=== PATIENT | female | born 1965 | race Caucasian/White ===

== ENCOUNTER 2022-10-21 11:04 | Outpatient (REF) | payer MEDICARE, MEDICAID, SELFPAY ==
[2022-10-27 00:53] LABS: JCV Antibody POSITIVE; JCV Index Value 1.91
== END 2022-10-21 11:05 | disposition home or self-care (01) ==
LOC: HO.LAB 11:04
PROVIDERS: PCP Family Medicine; Visit Provider Psychiatry & Neurology Neurology
DX: G35 Multiple sclerosis (principal)
CPT/HCPCS: 36415; 86711

== ENCOUNTER 2023-09-25 07:06 | Inpatient (IN) | payer MEDICARE, MEDICAID, SELFPAY ==
[2023-09-25 07:17] VITALS: BP 104/55; PULSE 85; RESP 18; TEMP 36.9; O2SAT 98; BMI 18.7
--- NOTE | 2023-09-25 07:22 | ED.WEAKNESS ---
HPI - Weakness General Chief complaint: Weakness Stated complaint: COLD/FLU SX,WEAK,UNABLE TO GET UP,HX MS PER EMS Time Seen by Provider: 09/25/23 07:08 Source: patient and EMS Mode of arrival: EMS Limitations: no limitations History of Present Illness HPI Narrative: 58 yo female with PMH of relapsin and remitting MS on Tysabri she follows with Dr. Parkinson. Her son came home last Monday with sore throat fevers and not feeling well had neative COVID test at that time. Patient is not vaccinated against flu or COVID. Yesterday she started with fevers 99 - 102 dry mouth and sore throat. Now she is very weak and feels she cannot walk. Her test at home was also negative. She could not get to the bedside commode and urinated on herself. MD Complaint: generalized weakness Onset (ago): day(s) (1) Duration: constant Location: generalized Migration: none Severity: moderate Quality: aching Relieving factors: rest Exacerbating factors: movement and exertion Context: recent illness and other (sick contacts) Associated symptoms: fever/chills and other (sore throat, dry mouth) Related Data Allergies Allergy/AdvReac Type Severity Reaction Status Date / Time No Known Allergies Allergy Unverified 04/09/20 16:25 [No Known Allergies*] Review of Systems Review of Systems: Constitutional : pos Fever, pos Chills, pos Fatigue ENT/Mouth : pos sore throat, No Rhinorrhea Eyes: No Eye Pain, No Swelling, No Redness Cardiovascular : No Chest Pain, No SOB, No Dyspnea on Exertion Respiratory : No Cough, No Sputum Gastrointestinal : No Nausea, No Vomiting, No Diarrhea, No abdominal Pain Genitourinary : No Dysuria, No Urinary Frequency, No Hematuria, Musculoskeletal : No joint pain, pos Myalgias, No Joint Swelling Skin : No Skin Lesions, No rash Neuro : pos Weakness, No Numbness, No Dizziness, positive Headache Psych : No Anxiety/Panic, No Depression Heme/Lymph: No Bruising, No Bleeding,No Lymphadenopathy Endocrine : No Polyuria, No Polydipsia All other systems reviewed and are negative [facility] [place] [place] Past Medical History Attestation statement: The following information was validated with the patient. Source: old records reviewed Medical History (Updated 09/25/23 @ 09:45 by Skylar Garcia DO) Multiple sclerosis Social History Social History (Updated 09/25/23 @ 07:44 by Skylar Garcia DO) Patient Tobacco Use Status: Never used Tobacco Smoked in Last 30 Days: No Use of substances other than those prescribed or required for medical reasons: Yes Substance Use Type: Marijuana Advance Directives: No Advance Directives Information Provided: No Physical Exam Vital Signs: Vital Signs: Last Vital Signs Temp 98.4 F 09/25/23 07:17 Pulse 85 09/25/23 07:17 Resp 18 09/25/23 07:17 BP 104/55 L 09/25/23 07:17 Pulse Ox 98 09/25/23 07:17 O2 Del Method Room Air 09/25/23 07:17 BMI result Body Mass Index 18.7 Appearance: Alert. Oriented X3. No acute distress. Eyes: Pupils equal, round and reactive to light. ENT: Pharynx normal. mildly dry MM Neck: Normal inspection. Neck supple. CVS: Normal heart rate and rhythm. Pulses normal. Respiratory: No respiratory distress. Breath sounds normal. Abdomen: Soft and nontender. Skin: Skin warm and dry. Normal skin color. Normal skin turgor. Extremities: No lower extremity edema. No calf ttp Neuro: Oriented X 3. No sensory deficit. both legs are weak she has limited strength and mobility at this time - symmetric Medications Administered Discontinued Medications Generic Name Dose Route Start Last Admin Trade Name Freq PRN Reason Stop Dose Admin Sodium Chloride 1,000 mls @ 999 mls/hr 09/25/23 07:30 09/25/23 09:06 Ns IV 09/25/23 08:30 Infused .Q1H1M REHANA Infusion Medical Decision Making Medical Decision Making MDM Narrative: 58 yo female with PMH of MS on infusions at this time here with fevers, sore throat after exposure to same illness as her son she is now having leg weakness and decreased ability to get around at this time labs, IVF, viral panel, strep throat and will discuss with her neurologist about possible IV steroid bolus given exacerbation though she is reporting fevers still. Will discuss with neurologist Differential Diagnosis Differential Diagnoses: The differential diagnosis associated with the presentation includes viral syndrome, MS exacerbation Admission/Observation Consideration of admission/observation: Escalation of care including admission/observation considered patient cannot ambulate has exacerbation of her MS, incontinent of urine as she cannot make to the toilet acutely + COVID no hypoxia will admit for IV steroid infusions Consult Healthcare Provider Management of the patient was discussed with: Hospitalist (will admit) and Rn Embedded (Dr. Parkinson start with IV solumedrol 500mg IV admit treat covid will follow) Lab Data [facility] Lab Attestation statement: I reviewed the patient's lab results. 09/25/23 07:32 09/25/23 07:32 Labs: Lab Results 09/25/23 09/25/23 Range/Units 07:32 09:29 WBC 4.4 L (4.8-10.8) X10*3/uL RBC 4.30 (4.20-5.50) X10*6/uL Hgb 12.0 (12.0-16.0) g/dl Hct 37.0 (37.0-47.0) % MCV 86.0 (80.0-98.0) fL MCH 27.9 (27.0-33.0) pg MCHC 32.4 (31.0-35.0) g/dl RDW 13.6 (11.0-16.0) % Plt Count 140 L (160-400) X10*3/uL MPV 10.3 (9.4-12.3) fL Immature Gran % (Auto) 0.5 H (0.0-0.4) % Neut % (Auto) 67.2 (45-73) % Lymph % (Auto) 14.1 L (20-40) % [place] % (Auto) 16.4 H (2-11) % Eos % (Auto) 1.1 (0-4) % Baso % (Auto) 0.7 (0-2) % Lymph # (Auto) 0.6 L (1.2-4.9) X10*3/uL [place] # (Auto) 0.7 (0.1-1.2) X10*3/uL Eos # (Auto) 0.1 (0.0-0.4) X10*3/uL Baso # (Auto) 0.0 (0.0-0.2) X10*3/uL Abs Immat Gran (auto) 0.02 (0.00-0.03) X10*3/uL Absolute Neuts (auto) 3.0 (2.0-8.3) x10*3/uL Absolute Nucleated RBC 0.020 H (0.0-0.012) X10*3/uL Nucleated RBC % (auto) 0.5 H (0.0-0.2) /100WBC Sodium 139 (135-145) mmol/L Potassium 4.0 (3.3-5.1) mmol/L Chloride 105 (96-108) mmol/L Carbon Dioxide 29 (22-29) mmol/L Anion Gap 9 L (12-20) BUN 10 (9-16) mg/dL Creatinine 0.82 (0.5-1.4) mg/dL Estim Creat Clear Calc 67.6 Estimated GFR > 60 Random Glucose 113 (60-115) mg/dL Calcium 8.9 (8.4-10.2) mg/dL Magnesium 1.9 (1.6-2.6) mg/dL Total Bilirubin 0.5 (0.0-1.0) mg/dL Direct Bilirubin 0.2 (0.0-0.5) mg/dL AST 13 (5-31) U/L ALT 8 (0-31) U/L Alkaline Phosphatase 76 (39-117) U/L Total Protein 6.2 L (6.5-8.0) g/dL Albumin 4.1 (3.5-5.0) g/dL Lipase 36 (8-78) U/L Urine Color Yellow Urine Appearance Clear Urine pH 6.0 (5.0-9.0) Ur Specific [place] 1.010 (1.005-1.025) Urine Protein Negative (Neg-Trace) mg/dL Urine Glucose (UA) Negative (Negative) mg/dL Urine Ketones Trace (Negative) mg/dL Urine Blood Negative (Negative) Urine Nitrite Negative (Negative) Ur Leukocyte Esterase Negative (Negative) Influenza Type A (PCR) NEGATIVE (Negative) Influenza Type B (PCR) NEGATIVE (Negative) RSV RNA Qual (PCR) NEGATIVE (Negative) SARS-CoV-2 RNA (RT-PCR) POSITIVE A (Negative) S. pyogenes GrpA CLYDE Negative (Negative) Independent Historian Clinical information obtained from an independent historian. History obtained from or confirmed by: EMS Discharge Plan Discharge Clinical Impression: COVID-19, Exacerbation of multiple sclerosis, Weakness Patient Disposition: Admitted As Inpatient
[2023-09-25] MEDS: 0.9 % Sodium Chloride 1,000 ML 999 ML IV (07:34)
[2023-09-25 07:39] LABS: MANUAL DIFF FLAG NO
[2023-09-25 07:40] LABS: Basophils Percent Auto 0.7 % (0-2); Eosinophils Absolute Auto 0.1 X10*3/uL (0.0-0.4); Eosinophils Percent Auto 1.1 % (0-4); Imm Gran Abs Auto 0.02 X10*3/uL (0.00-0.03); Imm Gran Pct Auto 0.5 % (0.0-0.4); Lymphocytes Absolute Auto 0.6 X10*3/uL (1.2-4.9); Lymphocytes Percent Auto 14.1 % (20-40); Mean Corpuscular HGB Conc 32.4 g/dl (31.0-35.0); Mean Corpuscular Hemoglobin 27.9 pg (27.0-33.0); Mean Platelet Volume 10.3 fL (9.4-12.3); Monocytes Absolute Auto 0.7 X10*3/uL (0.1-1.2); Monocytes Percent Auto 16.4 % (2-11); NRBC Pct Auto 0.5 /100WBC (0.0-0.2); Neutrophils Percent Auto 67.2 % (45-73); Platelet Count 140 X10*3/uL (160-400); Red Cell Distribution Width 13.6 % (11.0-16.0); White Blood Count 4.4 X10*3/uL (4.8-10.8)
[2023-09-25 07:53] LABS: Alanine Aminotransferase 8 U/L (0-31); Albumin Level 4.1 g/dL (3.5-5.0); Alkaline Phosphatase 76 U/L (39-117); Anion Gap 9 (12-20); Aspartate Amino Transferase 13 U/L (5-31); Bilirubin Direct 0.2 mg/dL (0.0-0.5); Bilirubin Total 0.5 mg/dL (0.0-1.0); Blood Urea Nitrogen 10 mg/dL (9-16); Calcium 8.9 mg/dL (8.4-10.2); Carbon Dioxide 29 mmol/L (22-29); Chloride 105 mmol/L (96-108); Creatinine Clr Calc Pharmacy 67.6; Estimated Glomerular Filt Rate > 60; Glucose Random 113 mg/dL (60-115); Lipase 36 U/L (8-78); Magnesium 1.9 mg/dL (1.6-2.6); Sodium 139 mmol/L (135-145); Total Protein 6.2 g/dL (6.5-8.0)
[2023-09-25 08:12] LABS: IDNOW Serial# 08D9AD1C; Strep A Nucleic Acid Negative (Negative)
--- NOTE | 2023-09-25 09:06 | PC.NURSE ---
Per provider patient okay to take home medication 0.5mg of ativan and home dose ampyra
[2023-09-25 09:13] LABS: Influenza A PCR NEGATIVE (Negative); Influenza B PCR NEGATIVE (Negative); Resp Syncy Virus RNA Qual PCR NEGATIVE (Negative); SARS COV2 PCR INHOUSE POSITIVE (Negative)
[2023-09-25 09:35] LABS: Appearance Urine Clear; Color Urine Yellow; Glucose Urine UA Negative (Negative); Leukocyte Esterase Urine Negative (Negative); Nitrite Urine Negative (Negative); Urine Blood Negative (Negative); Urine Ketones Trace mg/dL (Negative); Urine Protein Negative (Neg-Trace)
[2023-09-25 10:08] VITALS: BP 108/54; PULSE 89; RESP 12; O2SAT 96
--- NOTE | 2023-09-25 10:13 | PM.IMHP ---
History of Present Illness Date of Service: 09/25/23 Chief Complaint: weakness 58F PMH relapsing remitting MS, presented with diffuse weakness. patient reports exposure to son with viral illness about 1 week ptp. now presentiing with 1 day of headache and diffuse weakness, inability to ambulate. no fever, sob. in ED covid positive. Review of Systems Review of Systems: Yes all other systems are reviewed and are negative [facility] Medical History Multiple sclerosis Social History Patient Tobacco Use Status: Never used Tobacco Smoked in Last 30 Days: No Use of substances other than those prescribed or required for medical reasons: Yes Substance Use Type: Marijuana Advance Directives: No Advance Directives Information Provided: No Meds Allergies Allergy/AdvReac Type Severity Reaction Status Date / Time No Known Allergies Allergy Unverified 04/09/20 16:25 [No Known Allergies*] Active Medications: Current Medications Methylprednisolone Sodium Succinate 500 mg/ Sodium Chloride 50 mls @ 50 mls/hr IV ONCE ONE Stop: 09/25/23 10:36 Physical Exam Vital Signs and Narrative: Vital Signs: Last Vital Signs Temp 98.4 F 09/25/23 07:17 Pulse 89 09/25/23 10:08 Resp 12 09/25/23 10:08 BP 108/54 L 09/25/23 10:08 Pulse Ox 96 09/25/23 10:08 O2 Del Method Room Air 09/25/23 10:08 BMI result Body Mass Index 18.7 General: AO X 3, fatigued Resp: CTA bilateral, no accessory muscles used CVS: S1,S2,RRR GI: soft, non tender, non distended Neuro: motor grossly intact, alert Psych: appropriate affect, appropriate insight Results Labs 09/25/23 07:32 09/25/23 07:32 Labs: Laboratory Results - last 24 hr 09/25/23 09/25/23 07:32 09:29 MCV 86.0 MCH 27.9 MCHC 32.4 RDW 13.6 Plt Count 140 L MPV 10.3 Immature Gran % (Auto) 0.5 H Neut % (Auto) 67.2 Lymph % (Auto) 14.1 L [place] % (Auto) 16.4 H Eos % (Auto) 1.1 Baso % (Auto) 0.7 Lymph # (Auto) 0.6 L [place] # (Auto) 0.7 Eos # (Auto) 0.1 Baso # (Auto) 0.0 Abs Immat Gran (auto) 0.02 Absolute Neuts (auto) 3.0 Absolute Nucleated RBC 0.020 H Nucleated RBC % (auto) 0.5 H Anion Gap 9 L Estim Creat Clear Calc 67.6 Estimated GFR > 60 Random Glucose 113 Calcium 8.9 Magnesium 1.9 Total Bilirubin 0.5 Direct Bilirubin 0.2 AST 13 ALT 8 Alkaline Phosphatase 76 Total Protein 6.2 L Albumin 4.1 Lipase 36 Urine Color Yellow Urine Appearance Clear Urine pH 6.0 Ur Specific [place] 1.010 Urine Protein Negative Urine Glucose (UA) Negative Urine Ketones Trace Urine Blood Negative Urine Nitrite Negative Ur Leukocyte Esterase Negative Influenza Type A (PCR) NEGATIVE Influenza Type B (PCR) NEGATIVE RSV RNA Qual (PCR) NEGATIVE SARS-CoV-2 RNA (RT-PCR) POSITIVE A S. pyogenes GrpA CLYDE Negative Assessment and Plan (1) Weakness: Status: Acute Plan 58F PMH MS presented with weakness, covid + MS with acute flare due to COVID Solu-Medrol 500 mg IV daily Neurology eval Symptomatic treatment for COVID DVT prophylaxis with Lovenox Full Code Patient with MS flare will likely require at least 3 days of high-dose IV Solu-Medrol inpatient. Quality Stroke Does the patient have a stroke diagnosis?: No VTE Prior VTE?: No VTE Risk Level:: Medical - moderate - high VTE Device Contraindication: Treatment Not Indicated VTE Drug Contraindication: N/A - Med Ordered
[2023-09-25] MEDS: methylPREDNISolone Sod Succ 500 MG in 0.9 % Sodium Chloride 50 ML 50 MG IV (10:57)
[2023-09-25] MEDS: Enoxaparin Sodium 40 MG/0.4 ML SYRINGE SUBCUT (10:57)
--- NOTE | 2023-09-25 11:14 | PHA.MEDREC ---
Pharmacy Consult ? Medication Reconciliation Pharmacy has completed the medication reconciliation. Spoke to patient and confirmed medication list.
[2023-09-25 11:29] VITALS: BP 101/48; PULSE 73; RESP 20; TEMP 37.1; O2SAT 100
--- NOTE | 2023-09-25 14:26 | PM.NEUROCN ---
History of Present Illness Data of Consult Service Date: 09/25/23 Primary Care Provider: Unknown Physician HPI Reason for consult: COVID, ?MS exacerbation This is a 58 yr old woman with stable relapsing remitting MS on Tysabri for many years, presented with diffuse weakness aftertesting positive for COVID contracted from her son who was sick in the last week. She was fine 8 hrs ago, an dnow has fever, headache and diffuse weakness, inability to ambulate. Review of Systems Review of Systems: Constitutional : pos Fever, pos Chills, pos Fatigue ENT/Mouth : pos sore throat, No Rhinorrhea Eyes: No Eye Pain, No Swelling, No Redness Cardiovascular : No Chest Pain, No SOB, No Dyspnea on Exertion Respiratory : No Cough, No Sputum Gastrointestinal : No Nausea, No Vomiting, No Diarrhea, No abdominal Pain Genitourinary : No Dysuria, No Urinary Frequency, No Hematuria, Musculoskeletal : No joint pain, pos Myalgias, No Joint Swelling Skin : No Skin Lesions, No rash Neuro : pos Weakness, No Numbness, No Dizziness, positive Headache Psych : No Anxiety/Panic, No Depression Heme/Lymph: No Bruising, No Bleeding,No Lymphadenopathy Endocrine : No Polyuria, No Polydipsia All other systems reviewed and are negative Yes all other systems are reviewed and are negative [facility] Past Medical History Medical History Multiple sclerosis Social History Social History Patient Tobacco Use Status: Never used Tobacco Smoked in Last 30 Days: No Use of substances other than those prescribed or required for medical reasons: Yes Substance Use Type: Marijuana Advance Directives: No Advance Directives Information Provided: No Meds Allergies Allergy/AdvReac Type Severity Reaction Status Date / Time No Known Allergies Allergy Unverified 04/09/20 16:25 [No Known Allergies*] Active Medications: Current Medications Acetaminophen (Acetaminophen 325 Mg Tablet) 650 mg PO Q6H PRN PRN Reason: Pain, Mild (Pain Scale 1-3) Enoxaparin Sodium (Enoxaparin Sodium 40 Mg/0.4 Ml Syringe) 40 mg SUBCUT Q24H REHANA Last Admin: 09/25/23 10:57 Dose: 40 mg Methylprednisolone Sodium Succinate 500 mg/ Sodium Chloride 50 mls @ 50 mls/hr IV DAILY REHANA Stop: 09/28/23 09:59 Lorazepam (Lorazepam 0.5 Mg Tablet) 0.5 mg PO DAILY PRN PRN Reason: Anxiety Melatonin (Melatonin 3 Mg Tablet) 6 mg PO BEDTIME PRN PRN Reason: Insomnia Pt Own ( Dalfampridine 10 Mg Tablet Extended Release 12 Hr) 10 mg PO BID [facility] Ondansetron HCl (Ondansetron Hcl 4 Mg/2 Ml Vial) 4 mg IVPUSH Q8H PRN PRN Reason: Nausea and Vomiting Sertraline HCl (Sertraline Hcl 25 Mg Tablet) 75 mg PO DAILY [facility] Sodium Chloride (0.9 % Sodium Chloride Flush 3 Ml Syringe) 3 ml IVFLUSH QSHIFT [facility] Home Medications Medication Instructions Recorded Confirmed Last Taken Type dalfampridine 10 mg 10 mg PO BID 09/25/23 09/25/23 09/25/23 History tablet,extended release,12 hr lorazepam 0.5 mg tablet 0.5 mg PO DAILY PRN Anxiety 09/25/23 09/25/23 Unknown History natalizumab 300 mg/15 mL 300 mg IV Q28D 09/25/23 09/25/23 09/11/23 History intravenous solution (Tysabri) sertraline 50 mg tablet 75 mg PO DAILY 09/25/23 09/25/23 09/24/23 History Physical Exam Vital Signs: Vital Signs: Last Vital Signs Temp 98.7 F 09/25/23 11:29 Pulse 73 09/25/23 11:29 Resp 20 09/25/23 11:29 BP 101/48 L 09/25/23 11:29 Pulse Ox 100 09/25/23 11:29 O2 Del Method Room Air 09/25/23 11:29 BMI result Body Mass Index 18.7 Neuro: Other: She's alert and oriented with normal cognitive functions. Cranial nerves are normal. Nonfocal neurological examination Results Labs 09/25/23 07:32 09/25/23 07:32 Labs: Short CBC 09/25/23 Range/Units 07:32 WBC 4.4 L (4.8-10.8) X10*3/uL Hgb 12.0 (12.0-16.0) g/dl Hct 37.0 (37.0-47.0) % Plt Count 140 L (160-400) X10*3/uL BMP 09/25/23 07:32 Sodium 139 Potassium 4.0 Chloride 105 Carbon Dioxide 29 BUN 10 Creatinine 0.82 Calcium 8.9 Liver Function 09/25/23 Range/Units 07:32 Total Bilirubin 0.5 (0.0-1.0) mg/dL Direct Bilirubin 0.2 (0.0-0.5) mg/dL AST 13 (5-31) U/L ALT 8 (0-31) U/L Alkaline Phosphatase 76 (39-117) U/L Albumin 4.1 (3.5-5.0) g/dL Urine 09/25/23 Range/Units 09:29 Urine Color Yellow Urine Appearance Clear Urine pH 6.0 (5.0-9.0) Ur Specific [place] 1.010 (1.005-1.025) Urine Protein Negative (Neg-Trace) mg/dL Urine Glucose (UA) Negative (Negative) mg/dL Assessment and Plan (1) COVID-19: Status: Acute In view of her underlying neurological disease in severity of symptoms, I would recommend treating her with Paxlovid (2) Exacerbation of multiple sclerosis: Status: Acute She has had very stable MS for several years and therefore I am not certain that this is an MS exacerbation. Her last MRI looked good. I think a generalized weakness is related to the Covid. We will administer one dosse of Solu-Medrol intravenously 500 mg, treat the Covid and see how she does clinically. Plan 58F PMH MS presented with weakness, covid + MS with acute flare due to COVID Solu-Medrol 500 mg IV daily Neurology eval Symptomatic treatment for COVID DVT prophylaxis with Lovenox Full Code Patient with MS flare will likely require at least 3 days of high-dose IV Solu-Medrol inpatient. Procedures Date of Service Date of Service: 09/25/23
[2023-09-25 15:25] VITALS: BP 111/59; PULSE 70; RESP 16; TEMP 36.8; O2SAT 97
--- NOTE | 2023-09-25 15:28 | PC.NURSE ---
assumed care of pt at this time. resting comfortably in stretcher. nad. call leal within reach.
--- NOTE | 2023-09-25 17:25 | MHC.EDTECH ---
Patient inc and patient total bed changed
[2023-09-25] MEDS: 0.9 % Sodium Chloride Flush 3 ML SYRINGE IVFLUSH (19:12)
[2023-09-25 20:04] VITALS: BP 94/62; PULSE 72; RESP 12; O2SAT 99
[2023-09-25 23:45] VITALS: BP 88/48; PULSE 60; RESP 16; O2SAT 98
[2023-09-26 00:55] VITALS: BP 98/51
[2023-09-26] MEDS: 0.9 % Sodium Chloride Flush 3 ML SYRINGE IVFLUSH ×2 (00:55→09:35)
[2023-09-26 00:59] VITALS: BP 98/51
[2023-09-26 01:01] VITALS: BP 98/51; O2SAT 98
[2023-09-26 05:37] VITALS: BP 109/51; PULSE 55; RESP 15; TEMP 36.4; O2SAT 99
[2023-09-26 06:32] LABS: Hematocrit 35.5 % (37.0-47.0); Hemoglobin 11.5 g/dl (12.0-16.0); Mean Corpuscular HGB Conc 32.4 g/dl (31.0-35.0); Mean Corpuscular Hemoglobin 27.8 pg (27.0-33.0); Mean Corpuscular Volume 85.7 fL (80.0-98.0); Mean Platelet Volume 11.2 fL (9.4-12.3); NRBC Pct Auto 0.5 /100WBC (0.0-0.2); Platelet Count 167 X10*3/uL (160-400); Red Blood Count 4.14 X10*6/uL (4.20-5.50); Red Cell Distribution Width 13.5 % (11.0-16.0); White Blood Count 5.7 X10*3/uL (4.8-10.8)
[2023-09-26 06:46] LABS: Anion Gap 9 (12-20); Blood Urea Nitrogen 9 mg/dL (9-16); Calcium 8.9 mg/dL (8.4-10.2); Carbon Dioxide 26 mmol/L (22-29); Chloride 108 mmol/L (96-108); Creatinine Clr Calc Pharmacy 75.9; Estimated Glomerular Filt Rate > 60; Glucose Fasting 98 mg/dL (60-99); Sodium 139 mmol/L (135-145)
[2023-09-26] MEDS: Sertraline HCL 25 MG TABLET 75 MG PO (09:35)
[2023-09-26] MEDS: Enoxaparin Sodium 40 MG/0.4 ML SYRINGE SUBCUT (09:35)
--- NOTE | 2023-09-26 09:44 | MHC.CM.PN ---
Patient is in the ED and Covid (+); CM spoke with Patient on her cell at [phone] and addressed IMM with her (original will be given to Patient and a copy will be placed on the chart). Patient lives with her 2 adult Sons, ages 26 & 28 years of age and because of her MS, she requires a cane and a w/c at times to assist with mobility. At Patient's request a referral has been made to NA; [facility] has initiated and will follow for dc planning. CM was unable to locate a HCP at the PCP's office. PCP is Dr. Fariha Rushing @ [phone].
--- NOTE | 2023-09-26 10:36 | P.DS_ITS ---
DS: Providers Provider Date of Service: 09/26/23 Date of admission: 09/25/23 10:12 Primary care physician: Unknown Physician Consults: 09/25/23 09:44 Consult to Neurology Stat Consulting Provider: [facility] Reason for consultation: MS, weakness, COVID + Has provider been notified: Yes DS: Diagnosis Discharge Diagnosis (1) COVID-19: Status: Acute (2) Exacerbation of multiple sclerosis: Status: Acute DS: Summary Hospital Course Hospital Course: from initial hpi: 58F PMH relapsing remitting MS, presented with diffuse weakness. patient reports exposure to son with viral illness about 1 week ptp. now presentiing with 1 day of headache and diffuse weakness, inability to ambulate. no fever, sob. in ED covid positive. hospital course: Patient was initially admitted for suspected MS acute flare due to COVID and started on high-dose IV Solu-Medrol. She was seen by Neurology who felt this was more likely weakness due to COVID as opposed to true MS flare. Patient reports significant improvement the next day. Will be discharged home. Can continue symptomatic management for COVID. Should follow up with Neurology as outpatient. Time Attestation Discharge Coordination Time: discharge time of ____ minutes Quality: Safe Use of Opioids Does Pt have an Active Cancer Diagnosis on the Problem List?: No Quality: Stroke Does the patient have a stroke diagnosis?: No Physical Exam Vital Signs: Vital Signs: Last Vital Signs Temp 97.6 F 09/26/23 05:37 Pulse 55 09/26/23 05:37 Resp 15 09/26/23 05:37 BP 109/51 L 09/26/23 05:37 Pulse Ox 99 09/26/23 05:37 O2 Del Method Room Air 09/26/23 05:37 BMI result Body Mass Index 18.7 General: AO X 3, no acute distress Resp: CTA bilateral, no accessory muscles used CVS: S1,S2,RRR GI: soft, non tender, non distended Neuro: motor grossly intact, alert Psych: appropriate affect, appropriate insight DS: Data Data Completed and Pending Labs on day of discharge: Laboratory Results - last 24 hr 09/26/23 05:26 WBC 5.7 RBC 4.14 L Hgb 11.5 L Hct 35.5 L MCV 85.7 MCH 27.8 MCHC 32.4 RDW 13.5 Plt Count 167 MPV 11.2 Absolute Nucleated RBC 0.030 H Nucleated RBC % (auto) 0.5 H Sodium 139 Potassium 4.0 Chloride 108 Carbon Dioxide 26 Anion Gap 9 L BUN 9 Creatinine 0.73 Estim Creat Clear Calc 75.9 Estimated GFR > 60 Fasting Glucose 98 Calcium 8.9 Discharge Plan Discharge Anticipated Discharge Date/Time: 09/26/23 10:35 Patient Disposition: Home, Self-Care Discharge Diagnosis: covid Referrals: Physician,Unknown J [Primary Care Provider] - 1 Week Discharge Medications: Continued lorazepam 0.5 mg tablet 0.5 mg PO DAILY PRN (Reason: Anxiety) sertraline 50 mg tablet 75 mg PO DAILY Tysabri 300 mg/15 mL solution 300 mg IV Q28D dalfampridine 10 mg tablet extended release 12 hr 10 mg PO BID Discharge Orders: Discharge Order (Routine); Ordered 09/26/23 Ordered By: Tomas Jimenes Diet: Advance to usual diet Activity on Discharge: As tolerated Stand Alone Forms: Patient Portal Discharge page Care Plan Goals: recovery Health Concerns: covid Plan of Treatment: symptomatic management Assessment: see above
--- NOTE | 2023-09-26 10:38 | MHC.CM.PN ---
Patient has been medically cleared for dc to home today, self care.
--- NOTE | 2023-09-26 11:12 | PC.NURSE ---
assumed care of pt at 1045. pt a&o x4, pleasant, calm, and cooperative. denies pain, only complaint is being tired. pt sts this is her first time with covid and that her son fell ill with it last monday. pt sts she started to feel symptoms 2 days later on monday. pt currently resting quietly on stretcher in no apparent distress. call leal within reach. rr even/unlabored. plan of care ongoing.
[2023-09-26 12:59] VITALS: BP 104/47; PULSE 61; RESP 16; TEMP 37; O2SAT 100
== END 2023-09-26 13:09 | disposition home or self-care (01) | DRG 179 ==
LOC: HO.ED 09:45 → HO.EDOVER 10:15
PROVIDERS: Admitting Provider Internal Medicine; Emergency Provider Emergency Medicine; Visit Provider Internal Medicine
DX: U07.1 COVID-19 (principal); G35 Multiple sclerosis; Z79.620 Long term (current) use of immunosuppressive biologic; Z79.899 Other long term (current) drug therapy
CPT/HCPCS: 0241U; 36415; 80048; 80076; 81003; 83690; 83735; 85025; 85027; 87651; 99285; J1650; J2930

== ENCOUNTER → 2023-09-25 10:12 | Outpatient (BNV) | payer MEDICARE, MEDICAID, SELFPAY | PROVIDERS: Admitting Provider Internal Medicine; Emergency Provider Emergency Medicine; Visit Provider Psychiatry & Neurology Neurology | DX: U07.1 COVID-19 (principal); G35 Multiple sclerosis | CPT/HCPCS: 99222 ==

== ENCOUNTER 2024-01-23 14:08 | Outpatient (REF) | payer MEDICARE, MEDICAID, SELFPAY ==
[2024-01-30 23:13] LABS: JCV Antibody POSITIVE; JCV Index Value 1.46
== END 2024-01-23 14:09 | disposition home or self-care (01) ==
LOC: HO.LAB 14:08
PROVIDERS: Visit Provider Psychiatry & Neurology Neurology
DX: G35 Multiple sclerosis (principal)
CPT/HCPCS: 36415; 86711

== ENCOUNTER 2024-08-15 12:00 | Outpatient (REF) | payer MEDICARE, MEDICAID, SELFPAY ==
--- OUTSIDE RECORDS SUMMARY | 2024-08-15 14:28 | XMS_ITS | Clinical Summary ---
Author Organization [facility] Address [address] [place] [address] Care Team Providers Care Return To Service Inspector Name Role Phone Unavailable Primary Care Provider Unavailabl e Social History Tobacco Use Types Packs/Day Years Used Date Smoking Tobacco: Never Assessed Sex and Gender Information Value Date Recorded Sex Assigned at Not on file Gender Identity Not on file Sexual Orientation Not on file Job Start Date Occupation Industry Not on file Not on file Not on file Plan of Treatment Health Maintenance Due Date Last Done Comments Hepatitis B Vaccines (1 of 3 - 3-dose series) 1965 Hepatitis C Screening 1965 Depression Screening 1977 Preventative Health Evaluation 1983 Cervical Cancer Screening (Pap Smear) 1986 Colon Cancer Screening (Colonoscopy) 2010 Breast Cancer Screening (Mammogram) 2015 Shingrix-Zoster Vaccine (1 o f 2) 2015 DTap / Tdap / Td (2 - Td or Tdap) 10/23/2021 10/24/2011, 05/31/1993 COVID-19 Vaccine (3 - 2023-2 5 season) 2024 11/29/2020, 11/08/2020 Influenza Vaccine (#1) 2024 Pneumococcal Vaccine Aged Out No long er eligible based on patient's age to complete this topic RSV Ped < 20 months Aged Out No longe r eligible based on patient's age to complete this topic Marguerite Hu Personal/Family Self 1965 [address] [place] [id number]
--- OUTSIDE RECORDS SUMMARY | 2024-08-15 14:28 | XMS_ITS | Clinical Summary ---
Author Organization [facility] Address [address] [place] [address] Care Team Providers Care Automated Manufacturing Instructor Name Role Phone Farhia Hyatt MD Primary Care Provider + [phone] Allergies No known active allergies Medications Medication Sig Dispensed Refills Start Date End Date Status LORazepam (ATIVAN) 0.5 mg tablet Take 1 Tablet by mouth TAKE 1 TABLET BY MOUTH TWICE DAILY NEEDED Active cholecalciferol (VITAMIN D-3) 25 mcg (1,000 unit) tablet Take 2,000 Units by mouth Active dalfampridine 10 mg tablet extended release 12 hr Take 10 mg by mouth Active natalizumab (TYSABRI) 300 mg/15 mL injection Inject 300 mg into the vein Active sertraline (ZOLOFT) 50 mg tablet TAKE 1 AND 1/2 TABLETS(75 MG) BY MOUTH DAILY Active MAGNESIUM CITRATE ORAL Take by mouth Active B complex tablet Take by mouth Activ e Active Problems Problem Noted Date Diagnosed Date Anxiety 07/03/2024 Depression 07/03/2024 Endometrial cancer 07/03/2024 Multiple sclerosis, relapsing-remitting 07/03/20 24 Immunizations Name Administration Dates Next Due Vivo SARS-CoV-2 COVID-19, mRNA, LNP-S, preservative free 11/29/2020,11/08/2020 Surgical History Surgery Date Site/Laterality Comments TONSILLECTOMY 1971 PROCEDURE: HISTORICAL TONSILLECTOMY OTHER SURGICAL HISTORY 12/06/2021 PROCEDURE: MI LAPS TOTAL HYSTERECT 250 GM/< W/RMVL TUBE/OVARY; COMMENT: Robotic-assisted total laparoscopic hysterectomy with bilateral salpingo-oophorectomy and bilateral sentinel lymph node biopsy with Firefly Medical History Medical History Date Comments Multiple sclerosis (CMS/HCC) 11/23/2021 DX: Multiple sclerosis (HCC) Anxiety 11/23/2021 DX:Anxiety Depression 11/23/2021 DX:Depression Social History Tobacco Use Types Packs/Day Years Used Date Smoking Tobacco: Former Smokeless Tobacco: Never Alcohol Use Standard Drinks/Week Comments Never 0 (1 standard drink = 0.6 oz pur e alcohol) Sex and Gender Information Value Date Recorded Sex Assigned at Female 01/06/2022 3:31 PM EDT Gender Identity Female 01/06/2022 3:31 PM EDT Sexual Orientation Straight 01/06/2022 3: 31 PM EDT Obstetrics History Last Filed Vital Signs Vital Sign Reading Time Taken Comments Blood Pressure 124/70 10/19/2023 12:54 PM EDT Pulse 76 10/19/2023 12:54 PM EDT Temperature - - Respiratory Rate - - Oxygen Saturation - - Inhaled Oxygen Concentration - - Weight 57.6 kg (127 lb) 10/18/2022 1:45 PM EDT Height - - Body Mass Index - - Plan of Treatment Upcoming Encounters Date Type Department Care Team (Late st Contact Info) Description 10/24/2024 1:20 PM EDT Office Visit [facility] [address] [place] [address] Idania Edmond MD [address] [place] [address] Health Maintenance Due Date Last Done Comments Breast Cancer Screening 1965 Pneumococcal Vaccine: Pediatrics (0 to 5 Years) and At-Risk Patients (6 to 64 Years) (1 of 2 - PCV) 1971 DTaP,Tdap,and Td Vaccines (1 - Tdap) 1984 Hepatitis B Vaccines (1 of 3 - 19+ 3-dose series) 1984 Zoster Vaccines (1 of 2) 1984 Cervical Cancer Screening: P ap Smear 1986 COVID-19 Vaccine (3 - Pfizer risk series) 12/27/2020 11/29/2020, 11/08/2020 Colorectal Cancer Screening: Colonoscopy 01/06/2022 Depression Screening 01/06/2022 HIV Screening 01/06/2022 Hepatitis C Screening 01/06/2022 Social Influencers of Health Screening 01/06/2022 Influenza Vaccine (#1) 2024 RSV Immunization Patients 60 + Years Old (1 - 1-dose 75+ series) 2040 HIB Vaccines Aged Out No longer eligi ble based on patient's age to complete this topic HPV Vaccines Aged Out No longer eligi ble based on patient's age to complete this topic Hepatitis A Vaccines Aged Out No long er eligible based on patient's age to complete this topic IPV Vaccines Aged Out No longer eligi ble based on patient's age to complete this topic MMR Vaccines Aged Out No longer eligi ble based on patient's age to complete this topic Meningococcal ACWY Vaccine Aged Out N o longer eligible based on patient's age to complete this topic RSV Immunization Patients Under 20 months Aged Out No longer eligible b ased on patient's age to complete this topic Varicella Vaccines Aged Out No longer eligible based on patient's age to complete this topic Advance Directives Documents on File Type Date Recorded 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
--- OUTSIDE RECORDS SUMMARY | 2024-08-15 14:28 | XMS_ITS ---
Author Organization Chaz Miguel III, MD Address [address] [place] [address] Care Team Providers Care Clinical Care Manager Name Role Phone DILEEP Rushing Primary Care Provider Unavailab Chaz Britton Unavailable [phone] Tesha AWAN, [facility] Unavailable Unavailabl e Allergies Allergen (clinical drug ingredient) Drug/Non Drug Allergy documented on EMR Reaction Allergy Type Onset Date Status No Known Drug Allergy Unknown Drug Allergy Active REASON FOR VISIT Tysabri Infusion Medications Medication SIG (Take, Route, Fr equency, Duration) Notes Start Date End Date Status Zoloft 50 MG 1 tablet Orally Once a day Active Tysabri 300 MG/15ML Intravenous Active LORazepam 0.5 MG (Schedule IV Drug) T CANDICE 1 TABLET BY MOUTH TWICE DAILY IF NEEDED Oral Active Ampyra 10 MG 1 tablet Orally Twice a day 7 Active Social History Tobacco Use: Social History Observation Description Date Details (start date - stop date) Former Smoker NA - NA Sex Assigned At : Social History Observation Description Sex Assigned At Female Tobacco Use/Smoking Question Answer Notes Patient is a former smoker How long has it been since you last smoked? 5-10 years Additional Findings: Tobacco Non-User Ex-cigaret te smoker Vital Signs Blood pressure systolic 124 mm Hg 05/22/20 24 Blood pressure diastolic 72 mm Hg 024 Heart Rate 89 /min 05/22/2024 Height 69 in in 05/22/2024 Weight 121 lbs 05/22/2024 BMI 17.87 kg/m2 05/22/2024 Encounters Encounter Location Date Provider Diagnosis Chaz Miguel III, MD [address] [place] [address] [place] [address] 05/22/2024 Chaz Lamont MS (multiple sclerosis) G35 ; Positive PPD R76.11 ; Former smoker Z87.891 ; Underweight R63.6 and Endometrial cancer C54.1 Assessments Encounter Date Diagnosis (ICD Code) Assessment Notes Treatment Notes Treatment Clinical Notes 05/22/2024 MS (multiple sclerosis) (ICD-10 - G35) She received the Tysabri infusion today without difficulty and tolerated it well. 05/22/2024 Positive PPD (ICD-10 - R76.11) There is no sign of active tuberculosis this time. She has been treated with 12 months of isoniazid and should be free of disease. 05/22/2024 Former smoker (ICD-10 - Z87.891) She is highly motivated not to smoke and has a plan to prevent relapse in times of illness and distress. 05/22/2024 Underweight (ICD-10 - R63.6) Her weight has been stable. Her body mass index is 17.8. I encouraged her to increase her caloric intake. 05/22/2024 Endometrial cancer (ICD-10 - C54.1) She has completed her radiation. She has no pain at this point, but feels tired. She is cancer free at this time. Plan Of Treatment Medication Medication Name Sig Start Date Stop Date Notes Zoloft 50 MG 1 tablet Orally Once a day Tysabri 300 MG/15ML Intravenous LORazepam 0.5 MG (Schedule IV Drug) T CANDICE 1 TABLET BY MOUTH TWICE DAILY IF NEEDED Oral Ampyra 10 MG 1 tablet Orally Twice a day 04/24/2017 Next Appt Details Follow Up: 4 Weeks, Reason: Tysabri infusion Provider Name:Chaz Miguel, 08/21/2024 01:00:00 PM, [address] [place] [address] [place], [address], Provider Name:Chaz Miguel, 09/18/2024 01:00:00 PM, [address] [place] [address] [place], [address], Provider Name:Chaz Miguel, 10/16/2024 01:00:00 PM, [address] [place] [address] [address] [place], [place], [address], Procedure Notes * Category Sub-Category Detail Notes Chemotherapy Start and End Time: start, 1:00 pm, end, 2:00 pm Site: left hand Consent: verbal consent was o btained prior to procedure Medications given: Tysabri 300 mg Monitored by: Trace Mancilla port flush none route IV Progress Notes * REJI WALLACEOB:1965 (58 yo F)Acc No.[id number]:05/22/2024 Patient:?MADISON AISSATOU Provider:?Chaz Miguel MD :1965???Age:58 Y???Sex:Female D ate:05/22/2024 Address: [facility], [id number] Pcp:DILEEP Rushing Subjective: * Chief Complaints: * ???Tysabri Infusion * HPI: ???COVID-19 Screening:? He returns for another dose of Tysabri monoclonal antibody therapy for chronic relapsing multiple sclerosis.? There was no contraindication to treatment today.? He tolerated the infusion well. ?Questions?Have you experienced fever, chills, cough, sore throat, shortness of breath, difficulty breathing, muscle aches, loss of taste or smell??No ?Have you been exposed to the virus within the last 10 days??No ?Have you travelled internationally in the last 10 days??No ?Have you been exposed to COVID-19 in the past??Yes * ROS:?General/Constitutional:?pain?only normal aches and pains.?Chills?denies.?Fatigue?admits.?Fever?denies.?ENT:?Decreased hearing?denies.?Respiratory:?Cough?denies.?Cardiovascular:?Chest pain with exertion?denies.?Dyspnea on exertion?denies.?Shortness of breath?denies.?Gastrointestinal:?Constipation?occasional.?Decreased appetite?denies.?Diarrhea?denies.?Heartburn?denies.?Nausea?denies.?Rectal bleeding?denies.?Vomiting?denies.?Hematology:?bruising?denies.?petechiae?denies.?Swollen glands?none have been noted.?Genitourinary:?Frequent urination?denies.?Musculoskeletal:?Muscle aches?denies.?Painful joints?denies.?Sciatica?denies.?Weakness?Both lower extremities.?Skin:?Itching?denies.?Rash?denies.?Skin lesion(s)?denies.?Neurologic:?Difficulty speaking?denies.?Dizziness?denies.?Headache?denies.?Low back pain?denies.?Psychiatric:?Depressed mood?denies.? * Medical History:? * Surgical History:?[id number] to nsillectomy age 10 * Hospitalization/Major Diagno stic Procedure:?Denies Past Hospitalization * Family History:?Father: valentine aleman 73 yrs, well.?Mother: alive 72 yrs, overweight.?Son(s): well.?1 brother(s) , 1 sister(s) - healthy. 2 son(s) - healthy. .? Her siblings are alive and well. One of her sons has mild osteogenesis imperfecta. She is not aware of any family history of mental illness or substance use disorder or depression. * Social History:?Tobacco Use:?Tobacco Use/Smoking?Patient is a?former smoker ?How long has it been since you last smoked??5-10 years ?Additional Findings: Tobacco Non-User?Ex-cigarette smoker ???She has Social Security disability. She is no longer employed. She was born in [facility]. 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 She has 2 sons currently 20/2/19 years old. * Medications:?TakingAmpyra 10 MG Tablet Extended Release 12 Hour 1 tablet Orally Twice a day LORazepam 0.5 MG Tablet (Schedule IV Drug) TAKE 1 TABLET BY MOUTH TWICE DAILY IF NEEDED Oral Tysabri 300 MG/15ML Concentrate Intravenous Zoloft 50 MG Tablet 1 tablet Orally Once a day Medication List reviewed and reconciled with the patientTaking Ampyra 10 MG Tablet Extended Release 12 Hour 1 tablet Orally Twice a day Taking LORazepam 0.5 MG Tablet (Schedule IV Drug) TAKE 1 TABLET BY MOUTH TWICE DAILY IF NEEDED Oral Taking Tysabri 300 MG/15ML Concentrate Intravenous Taking Zoloft 50 MG Tablet 1 tablet Orally Once a day Medication List reviewed and reconciled with the patient * Allergies:?No Known Drug All ergyno[Allergies Verified] Objective: * Vitals:?Ht: 69 in, Wt: 121, BMI:17.87, BP: 124/72, HR: 89, Ht-cm: 175.26, Wt-k.88. * Examination: ???General Examination: ?GENERAL APPEARANCE:?pleasant, well nourished, well developed, in no acute distress, calm and relaxed, underweight, woman.?HEAD:?atraumatic, normocephalic.?EYES:?eomi, perrla, anicteric, conjugate.?EARS:?normal.?NOSE:?septum intact.?ORAL CAVITY:?normal, unremarkable.?NECK/THYROID:?no jugular venous distention, no carotid bruit, thyroid normal.?LYMPH NODES:?no enlarged lymph nodes,spleen normal.?SKIN:?no suspicious lesions, anicteric.?HEART:?no clicks, gallops, murmurs, or rubs, regular rhythm, S1, S2 normal, no s3, or vascular bruits.?LUNGS:?clear to auscultation .?BREASTS:?Not examined.?ABDOMEN:?bowel sounds normal, no ascites, no organomegaly, no mass.?RECTAL EXAM:?not examined.?MUSCULOSKELETAL:?extremities unremarkable, no clubbing, cyanosis or edema.?PERIPHERAL PULSES:?normal.?NEUROLOGIC:?alert and oriented, cranial nerves 2-12 grossly intact, deep tendon reflexes 2+ symmetrical, motor strength normal upperextremities, sensory exam intact, Weakness both lower extremities with muscle wasting, neuro stimulator left leg.?PSYCH:?alert, oriented.? Assessment: * Assessment: 1.?MS (multiple sclerosis) - G35 (Primary)???Notes :She received the Tysabri infusion today without difficulty and tolerated it well.???2.?Positive PPD - R76.11???Notes :There is no sign of active tuberculosis this time. She has been treated with 12 months of isoniazid and should be free of disease.???3.?Former smoker - Z87.891???Notes :She is highly motivated not to smoke and has a plan to prevent relapse in times of illness and distress.???4.?Underweight - R63.6???Notes :Her weight has been stable. Her body mass index is 17.8. I encouraged her to increase her caloric intake.???5.?Endometrial cancer - C54.1???Notes :She has completed her radiation. She has no pain at this point, but feels tired. She is cancer free at this time.??? Plan: * Treatment: * Procedures:?Chemotherapy:?Start and End Time:?start, 1:00 pm, end, 2:00 pm.?Site:?left hand.?Consent:?verbal consent was obtained prior to procedure.?Medications given:?Tysabri 300 mg.?Monitored by:?Trace Mancilla.?port flush?none.?route?IV.? * Procedure Codes:?31431 CHEMO , IV INFUSION, 1 [id number] NATALIZUMAB INJECTION * Preventive Medicine:? ??Counseling:?Care goal follow-up plan:?Counseling for abnormal BMI given?Yes ?Above Normal BMI Follow-up?Dietary management education, guidance, and counseling, Dietary needs education, Exercise promotion: strength training, Exercise promotion: stretching, Feeding regime, Giving encouragement to exercise, Lifestyle education regarding diet, Nutrition / feeding management, Nutrition therapy, Prescribed activity/exercise education, Prescribed diet education, Prescribed dietary intake, Special diet education, Weight monitoring , Intervention, Order not done: Medical or Other reason not done ?Smoking/Tobacco Use?Patient counseled on the dangers of tobacco use and urged to quit.?05/22/2024 * Follow Up:?4 Weeks (Reason: Tysabri infusion) * Images: * Sign off status: Completed true * Provider:?Chaz Miguel MD Date:?04/25 Generated for Hannah vergara/Jay/eTransmitting on:?08/15/2024 02:28 PM EST History and Physical Notes * HPI (History of Present Illness) Category Sub-Category Detail Notes COVID-19 Screening Questions Have you had any new onset fever, chills, cough, congestion, sore throat, shortness of breath, muscle aches?: No Have you been exposed to the virus withi n the last 10 days?: No Have you travelled internationally [facility] last [facility] days?: No Have you been exposed to COVID-19 in the past?: Yes Examination Category Sub-Category Detail Notes General Examination GENERAL APPEARANCE: pleasant , well nourished, well developed, in no acute distress, calm and relaxed, underweight, woman HEAD: atraumatic, normocep halic EYES: eomi, perrla, anicte tatiana, conjugate EARS: normal NOSE: septum intact NECK/THYROID: no jugular venous di stention, no carotid bruit, thyroid normal HEART: no clicks, gallops, murmurs, or rubs, regular rhythm, S1, S2 normal, no s3, or vascular bruits LUNGS: clear to auscultatio n ABDOMEN: bowel sounds normal, no ascites, no organomegaly, no mass NEUROLOGIC: alert and oriented, cranial nerves 2-12 grossly intact, deep tendon reflexes 2+ symmetrical, motor strength normal upperextremities, sensory exam intact, Weakness both lower extremities with muscle wasting, neuro stimulator left leg SKIN: no suspicious lesion s, anicteric PERIPHERAL PULSES: normal BREASTS: Not examined MUSCULOSKELETAL: extremities unremark able, no clubbing, cyanosis or edema LYMPH NODES: no enlarged lymph no estrella,spleen normal RECTAL EXAM: not examined PSYCH: alert, oriented ORAL CAVITY: normal, unremarkable
--- OUTSIDE RECORDS SUMMARY | 2024-08-15 14:28 | XMS_ITS ---
Author Organization Chaz Miguel III, MD Address [address] [address] Care Team Providers Care Microstrategy Developer Name Role Phone DILEEP Rushing Primary Care Provider Unavailab Chaz Britton Unavailable [phone] Tesha AWAN, [facility] Unavailable Unavailabl e Allergies Allergen (clinical drug ingredient) Drug/Non Drug Allergy documented on EMR Reaction Allergy Type Onset Date Status No Known Drug Allergy Unknown Drug Allergy Active REASON FOR VISIT Tysabri Infusion, Multiple sclerosis Medications Medication SIG (Take, Route, Fr equency, Duration) Notes Start Date End Date Status Zoloft 50 MG 1 tablet Orally Once a day Active Ampyra 10 MG 1 tablet Orally Twice a day 7 Active LORazepam 0.5 MG (Schedule IV Drug) T CANDICE 1 TABLET BY MOUTH TWICE DAILY IF NEEDED Oral Active Tysabri 300 MG/15ML Intravenous Active Social History Tobacco Use: Social History [...] te smoker Vital Signs Blood pressure systolic 111 mm Hg 06/19/20 24 Blood pressure diastolic 69 mm Hg 024 Heart Rate 81 /min 06/19/2024 Height 69 in in 06/19/2024 Weight 123 lbs 06/19/2024 BMI 18.16 kg/m2 06/19/2024 Encounters Encounter Location Date Provider Diagnosis Chaz Miguel III, MD [address] [place] [address] [address] [place] [id number] 06/19/2024 Chaz Miguel MS (multiple sclerosis) G35 ; Former smoker Z87.891 ; Leg weakness, bilateral R29.898 ; Endometrial cancer C54.1 and Underweight R63.6 Assessments Encounter Date Diagnosis (ICD Code) Assessment Notes Treatment Notes Treatment Clinical Notes 06/19/2024 MS (multiple sclerosis) (ICD-10 - G35) She received the Tysabri infusion today without difficulty and tolerated it well. 06/19/2024 Former smoker (ICD-10 - Z87.891) She is highly motivated not to smoke and has a plan to prevent relapse in times of illness and distress. 06/19/2024 Leg weakness, bilateral (ICD-10 - R29.898) She uses a cane or a seated walker. There has been no change in the leg weakness and she remains fully ambulatory. 06/19/2024 Endometrial cancer (ICD-10 - C54.1) She has completed her radiation. She has no pain at this point, but feels tired. She is cancer free at this time. 06/19/2024 Underweight (ICD-10 - R63.6) Her weight has been stable. Her body mass index is 17.8. I encouraged her to increase her caloric intake. Plan Of Treatment Medication Medication Name Sig Start Date Stop Date Notes Zoloft 50 MG 1 tablet Orally Once a day Ampyra 10 MG 1 tablet Orally Twice a day 04/24/2017 LORazepam 0.5 MG (Schedule IV Drug) T CANDICE 1 TABLET BY MOUTH TWICE DAILY IF NEEDED Oral Tysabri 300 MG/15ML Intravenous Next Appt Details Follow Up: 4 Weeks, Reason: Tysabri no tests Provider Name:Chaz Miguel, 08/21/2024 01:00:00 PM, [address] [place] [address] [address], [place], [address], Provider Name:Chaz Miguel, 09/18/2024 01:00:00 PM, [address] [place] [address] [address], [place], [address], Provider Name:Chaz Miguel, 10/16/2024 01:00:00 PM, [address] [place] [address] [address], [facility], [address], Procedure Notes * Category Sub-Category Detail Notes Chemotherapy Start and End Time: start, 10:00 am, end, 11:00 am Site: right hand Consent: verbal consent was o btained prior to procedure Medications given: Tysabri 300 mg Monitored by: Trace Garcia ASMShyanne port flush none route IV Progress Notes * REJI WALLACEOB:1965 (58 yo F)Acc No.[id number]:06/19/2024 Patient:?AISSATOU WALLACE Provider:?Chaz Miguel MD :1965???Age:58 Y???Sex:Female D ate:06/19/2024 Address:[address] [place] [address], [id number] Pcp:DILEEP Rushing Subjective: * Chief Complaints: * ???Tysabri InfusionMultiple sclerosis * HPI: ???COVID-19 Screening:? She comes in today for an IV infusion of Tysabri monoclonal antibody thherapy.? She is being treated for chronic relapsing multiple sclerosis.? She was treated today without incident. ?Questions?Have you experienced fever, chills, cough, sore [...] breath?denies.?Gastrointestinal:?Constipation?occasional.?Decreased appetite?denies.?Diarrhea?denies.?Heartburn?denies.?Nausea?denies.?Rectal bleeding?denies.?Vomiting?denies.?Hematology:?bruising?denies.?petechiae?denies.?Swollen glands?none have been noted.?Genitourinary:?Frequent urination?at night.?Musculoskeletal:?Muscle aches?denies.?Painful joints?denies.?Sciatica?denies.?Weakness?denies.?Skin:?Itching?denies.?Rash?denies.?Skin lesion(s)?denies.?Neurologic:?Difficulty speaking?denies.?Dizziness?denies.?Headache?denies.?Low back pain?denies.?Psychiatric:?Depressed mood?denies.? * Medical History:? * Surgical History:?[id number] to nsillectomy age 10 * Hospitalization/Major Diagno [...] no longer employed. She was born in [facility]. 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 * Examination: ???General Examination: ?GENERAL APPEARANCE:?pleasant, well nourished, well developed, in no acute distress, calm and relaxed, woman.?HEAD:?atraumatic, normocephalic.?EYES:?eomi, perrla, anicteric, conjugate.?EARS:?normal.?NOSE:?septum intact.?ORAL CAVITY:?normal, unremarkable.?NECK/THYROID:?no jugular venous distention, no carotid bruit, thyroid normal.?LYMPH NODES:?no enlarged lymph nodes,spleen normal.?SKIN:?no suspicious lesions, anicteric.?HEART:?no clicks, gallops, murmurs, or rubs, regular rhythm, S1, S2 normal, no s3, or vascular bruits.?LUNGS:?clear to auscultation .?BREASTS:?Not examined.?ABDOMEN:?bowel sounds normal, no ascites, no organomegaly, no mass.?RECTAL EXAM:?not examined.?MUSCULOSKELETAL:?extremities unremarkable, no clubbing, cyanosis or edema, Muscle wasting lower extremities.?PERIPHERAL PULSES:?normal.?NEUROLOGIC:?alert and oriented, cranial nerves 2-12 grossly intact, deep tendon reflexes 2+ symmetrical, motor strength normal upper and lower extremities, sensory exam intact, Weakness lower extremities, neurostimulator below-knee left leg.?PSYCH:?alert, oriented.? Assessment: * Assessment: 1.?MS (multiple sclerosis) - G35 (Primary)???Notes :She received the Tysabri infusion today without difficulty and tolerated it well.???2.?Former smoker - Z87.891???Notes :She is highly motivated not to smoke and has a plan to prevent relapse in times of illness and distress.???3.?Leg weakness, bilateral - R29.898???Notes :She uses a cane or a seated walker. There has been no change in the leg weakness and she remains fully ambulatory.???4.?Endometrial cancer - C54.1???Notes :She has completed her radiation. She has no pain at this point, but feels tired. She is cancer free at this time.???5.?Underweight - R63.6???Notes :Her weight has been stable. Her body mass index is 17.8. I encouraged her to increase her caloric intake.??? Plan: * Treatment: * Procedures:?Chemotherapy:?Start and End Time:?start, 10:00 am, end, 11:00 am.?Site:?right hand.?Consent:?verbal consent was obtained prior to procedure.?Medications given:?Tysabri 300 mg.?Monitored by:?Melianet P, ASMA.?port flush?none.?route?IV.? * Procedure Codes:?41750 CHEMO , IV INFUSION, 1 [id number] NATALIZUMAB INJECTION * Preventive Medicine:? ??Counseling:?Care goal follow-up plan:?Counseling for abnormal BMI given?Yes ?Below Normal BMI Follow-up?Dietary management education, guidance, and counseling ?Smoking/Tobacco Use?Patient counseled on the dangers of tobacco use and urged to quit.?06/19/2024 * Follow Up:?4 Weeks (Reason: Tysabri no tests) * Images: * Sign off status: Completed true * Provider:?Chaz Miguel MD Date:?05/25 Generated for Hannah vergara/Jay/eTransmitting on:?08/15/2024 02:28 PM EST History and Physical Notes * HPI (History of Present Illness) Category Sub-Category Detail Notes COVID-19 Screening Questions Have you had any new onset fever, chills, cough, congestion, sore throat, shortness of breath, muscle aches?: No Have you been exposed to the virus withi n the last 10 days?: No Have you travelled internationally in e last 10 days?: No Have you been exposed to COVID-19 in the past?: Yes Examination Category Sub-Category Detail Notes General Examination GENERAL APPEARANCE: pleasant , well nourished, well developed, in no acute distress, calm and relaxed, woman HEAD: atraumatic, normocep halic EYES: eomi, [...] tendon reflexes 2+ symmetrical, motor strength normal upper and lower extremities, sensory exam intact, Weakness lower extremities, neurostimulator below-knee left leg SKIN: no suspicious lesion s, anicteric PERIPHERAL PULSES: normal BREASTS: Not examined MUSCULOSKELETAL: extremities unremark able, no clubbing, cyanosis or edema, Muscle wasting lower extremities LYMPH NODES: no enlarged lymph no estrella,spleen normal RECTAL EXAM: not examined PSYCH: alert, oriented ORAL CAVITY: normal, unremarkable
--- OUTSIDE RECORDS SUMMARY | 2024-08-15 14:28 | XMS_ITS ---
Author Organization Chaz Miguel III, MD Address [address] [address] Care Team Providers Care Chute Tender Name Role Phone DILEEP Rushing Primary Care Provider Unavailab Chaz Britton Unavailable [phone] Tesha AWAN, [facility] Unavailable Unavailabl e Allergies Allergen (clinical drug ingredient) Drug/Non Drug Allergy documented on EMR Reaction Allergy Type Onset Date Status No Known Drug Allergy Unknown Drug Allergy Active REASON FOR VISIT Tysabri Infusion, Multiple sclerosis Medications Medication SIG (Take, Route, Fr equency, Duration) Notes Start Date End Date Status Ampyra 10 MG 1 tablet Orally Twice a day 7 Active Zoloft 50 MG 1 tablet Orally Once a day Active Tysabri 300 MG/15ML Intravenous Active LORazepam 0.5 MG (Schedule IV Drug) T CANDICE 1 TABLET BY MOUTH TWICE DAILY IF NEEDED Oral Active Social History Tobacco Use: Social History [...] te smoker Vital Signs Blood pressure systolic 136 mm Hg 07/22/20 24 Blood pressure diastolic 84 mm Hg 024 Heart Rate 74 /min 07/22/2024 Height 69 in in 07/22/2024 Weight 120 lbs 07/22/2024 BMI 17.72 kg/m2 07/22/2024 Encounters Encounter Location Date Provider Diagnosis Chaz Miguel III, MD [address] [place] [address] [place] [address] 07/22/2024 Chaz Miguel MS (multiple sclerosis) G35 ; Positive PPD R76.11 ; Former smoker Z87.891 ; Underweight R63.6 and Leg weakness, bilateral R29.898 Assessments Encounter Date Diagnosis (ICD Code) Assessment Notes Treatment Notes Treatment Clinical Notes 07/22/2024 MS (multiple sclerosis) (ICD-10 - G35) She received the Tysabri infusion today without difficulty and tolerated it well. 07/22/2024 Positive PPD (ICD-10 - R76.11) There is no sign of active tuberculosis this time. She has been treated with 12 months of isoniazid and should be free of disease. 07/22/2024 Former smoker (ICD-10 - Z87.891) She is highly motivated not to smoke and has a plan to prevent relapse in times of illness and distress. 07/22/2024 Underweight (ICD-10 - R63.6) She has lost 3 pounds weighs 120 pounds.. Her body mass index is 17. I encouraged her to increase her caloric intake.He has been referred back to 07/22/2024 Leg weakness, bilateral (ICD-10 - R29.898) She uses a cane or a seated walker. There has been no change in the leg weakness and she remains fully ambulatory. Plan Of Treatment Medication Medication Name Sig Start Date Stop Date Notes Ampyra 10 MG 1 tablet Orally Twice a day 04/24/2017 Zoloft 50 MG 1 tablet Orally Once a day Tysabri 300 MG/15ML Intravenous LORazepam 0.5 MG (Schedule IV Drug) T CANDICE 1 TABLET BY MOUTH TWICE DAILY IF NEEDED Oral Next Appt Details Follow Up: 4 Weeks, Reason: Tysabri infusion no tests Provider Name:Chaz Miguel, 08/21/2024 01:00:00 PM, [address] [place] [address] [place], [address], Provider Name:Chaz Miguel, 09/18/2024 01:00:00 PM, [address] [place] [address] [place], [address], Provider Name:Chaz Najerarne, 10/16/2024 01:00:00 PM, [address] [place] [address] [address] [place], [address], Procedure Notes * Category Sub-Category Detail Notes Chemotherapy Start and End Time: start, 1:00 pm, end, 2:00 pm Site: left hand Consent: verbal consent was o btained prior to procedure Medications given: Tysabri 300 mg Monitored by: ANDRESSA Gatica port flush none route IV Progress Notes * REJI WALLACEOB:1965 (58 yo F)Acc No.[id number]:07/22/2024 Patient:?MADISON AISSATOU Provider:?Chaz Miguel MD :1965???Age:58 Y???Sex:Female D ate:07/22/2024 [facility], [id number] Pcp:DILEEP Rushing Subjective: * Chief Complaints: * ???Tysabri InfusionMultiple sclerosis * HPI: ???COVID-19 Screening:? She comes to the office today for another scheduled intravenous infusion of Tysabri monoclonal antibody therapy for chronic relapsing multiple sclerosis.? She has been stable since her last visit.? She had no new complaints today.? She was treated without incident. ?Questions?Have you had any new onset fever, chills, cough, congestion, sore throat, shortness of breath, muscle aches??No * ROS:?General/Constitutional:?pain?only normal aches and pains.?Chills?denies.?Fatigue?admits.?Fever?denies.?ENT:?Decreased hearing?denies.?Respiratory:?Cough?denies.?Cardiovascular:?Chest pain with exertion?denies.?Dyspnea on exertion?denies.?Shortness of breath?denies.?Gastrointestinal:?Constipation?occasional.?Decreased appetite?denies.?Diarrhea?denies.?Heartburn?denies.?Nausea?denies.?Rectal bleeding?denies.?Vomiting?denies.?Hematology:?bruising?denies.?petechiae?denies.?Swollen glands?none have been noted.?Genitourinary:?Frequent urination?denies.?Musculoskeletal:?Muscle aches?denies.?Painful joints?denies.?Sciatica?denies.?Weakness?Both legs uses cane.?Skin:?Itching?denies.?Rash?denies.?Skin lesion(s)?denies.?Neurologic:?Difficulty speaking?denies.?Dizziness?denies.?Headache?denies.?Low back pain?denies.?Psychiatric:?Depressed mood?denies.? * Medical History:? * Surgical History:?[id number] to nsillectomy age 10 * Hospitalization/Major Diagno [...] no longer employed. 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 * Examination: ???General Examination: ?GENERAL APPEARANCE:?pleasant, well [...] sounds normal, no ascites, no organomegaly, no mass, Underweight.?RECTAL EXAM:?not examined.?MUSCULOSKELETAL:?extremities unremarkable, no clubbing, cyanosis or edema.?PERIPHERAL PULSES:?normal.?NEUROLOGIC:?alert and oriented, cranial nerves 2-12 grossly intact, deep tendon reflexes 2+ symmetrical, motor strength normal upper? extremities, sensory exam intact, Bilateral lower extremity weakness, neurostimulator attached to left leg below the knee.?PSYCH:?alert, oriented.? Assessment: * Assessment: 1.?MS (multiple sclerosis) [...] times of illness and distress.???4.?Underweight - R63.6???Notes :She has lost 3 pounds weighs 120 pounds.. Her body mass index is 17. I encouraged her to increase her caloric intake.He has been referred back to???5.?Leg weakness, bilateral - R29.898???Notes :She uses a cane or a seated walker. There has been no change in the leg weakness and she remains fully ambulatory.??? Plan: * Treatment: * Procedures:?Chemotherapy:?Start and End Time:?start, 1:00 pm, end, 2:00 pm.?Site:?left hand.?Consent:?verbal consent was obtained prior to procedure.?Medications given:?Tysabri 300 mg.?Monitored by:?Melianet P, ASMA.?port flush?none.?route?IV.? * Procedure Codes:?31070 CHEMO , IV INFUSION, 1 [id number] NATALIZUMAB INJECTION * Preventive Medicine:? ??Counseling:?Care goal follow-up plan:?Counseling for abnormal BMI given?Yes ?Below Normal BMI Follow-up?Dietary education for weight gain, Dietary management education, guidance, and counseling, Feeding regime, Lifestyle education regarding diet, Nutrition / feeding management, Prescribed diet education, Special diet education, Intervention, Order not done: Medical or Other reason not done ?Smoking/Tobacco Use?Patient counseled on the dangers of tobacco use and urged to quit.?07/22/2024 * Follow Up:?4 Weeks (Reason: Tysabri infusion no tests) * Images: * Sign off status: Completed true * Provider:?Chaz Miguel MD Date:?06/25 Generated for Hannah vergara/Jay/eTcandelariosmitting on:?08/15/2024 02:27 PM EST History and Physical Notes * HPI (History of Present Illness) Category Sub-Category Detail Notes COVID-19 Screening Questions Have you had any new onset fever, chills, cough, congestion, sore throat, shortness of breath, muscle aches?: No Examination Category Sub-Category Detail Notes General Examination [...] sounds normal, no ascites, no organomegaly, no mass, Underweight NEUROLOGIC: alert and oriented, cranial nerves 2-12 grossly intact, deep tendon reflexes 2+ symmetrical, motor strength normal upper extremities, sensory exam intact, Bilateral lower extremity weakness, neurostimulator attached to left leg below the knee SKIN: no suspicious lesion s, anicteric PERIPHERAL PULSES: normal BREASTS: Not examined MUSCULOSKELETAL: extremities unremark able, no clubbing, cyanosis or edema LYMPH NODES: no enlarged lymph no estrella,spleen normal RECTAL EXAM: not examined PSYCH: alert, oriented ORAL CAVITY: normal, unremarkable
--- OUTSIDE RECORDS SUMMARY | 2024-08-15 14:28 | XMS_ITS | Patient Health Record ---
Author Organization Chaz Miguel III, MD Address [address] [place] [address] [place] [address] Care Team Providers Care Civil Cad Designer Name Role Phone DILEEP Rushing Primary Care Provider Unavailab Chaz Britton Unavailable [phone] Tesha AWAN, [facility] Unavailable Unavailabl e Allergies Allergen (clinical drug ingredient) Drug/Non Drug Allergy documented on EMR Reaction Allergy Type Onset Date Status No Known Drug Allergy Unknown Drug Allergy Active Reason For Referral No Information Medications Medication SIG (Take, Route, Fr equency, [...] Additional Findings: Tobacco Non-User Ex-cigaret te smoker Alcohol Screen Question Answer Notes Did you have a drink containing alcohol in the p ast year? No Points 0 Interpretation Negative Problems Problem Type SNOMED Code ICD Code Onset Dates Problem Status W/U Status Risk Notes Problem 7793848 Former smoker (Z87.891) Active confirmed She is highly motivated not to smoke and has a plan to prevent relapse in times of illness and distress. Problem 348146786 Underweight (R63.6) Active confirmed She has lost 3 pounds weighs 120 pounds.. Her body mass index is 17. I encouraged her to increase her caloric intake.He has been referred back to Problem 364762720 Endometrial cancer (C54.1) Active confirmed She has completed her radiation. She has no pain at this point, but feels tired. She is cancer free at this time. Problem 70267426 MS (multiple sclerosis) (G35) Active confirmed She received the Tysabri infusion today without difficulty and tolerated it well. 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 She has been treated with 12 months of isoniazid and should be free of disease. Problem 2728423 Leg weakness, bilateral (R29.898) Active confirmed She uses a cane or a seated walker. There has been no change in the leg weakness and she remains fully ambulatory. Vital Signs Heart Rate 74 /min 07/22/2024 Temperature 98.2 degrees Fahrenheit 08/16/2023 Blood pressure diastolic 84 mm Hg 07/22/2024 Height 69 in in 07/22/2024 Blood pressure systolic 136 mm Hg 07/22/2024 Weight 120 lbs 07/22/2024 BMI 17.72 kg/m2 07/22/2024 Encounters Encounter Location Date Provider Diagnosis Chaz Miguel III, MD [address] [place] [address] [place] [address] 08/16/2023 Chaz Miguel MS (multiple sclerosis) G35 ; Positive PPD R76.11 ; Former smoker Z87.891 ; Underweight R63.6 and Endometrial cancer C54.1 Chaz Miguel III, MD [address] [place] [address] [place] [address] 09/13/2023 Chaz Miguel MS (multiple sclerosis) G35 ; Positive PPD R76.11 ; Former smoker Z87.891 ; Underweight R63.6 ; Leg weakness, bilateral R29.898 and Endometrial cancer C54.1 Chaz Miguel III, MD [address] [place] [address] [place] [address] 10/11/2023 Chaz Miguel MS (multiple sclerosis) G35 ; Positive PPD R76.11 ; Former smoker Z87.891 ; Leg weakness, bilateral R29.898 and Endometrial cancer C54.1 Chaz Miguel III, MD [address] [place] [address] [place] [address] 11/08/2023 Chaz Miguel MS (multiple sclerosis) G35 ; Positive PPD R76.11 ; Former smoker Z87.891 ; Underweight R63.6 and Leg weakness, bilateral R29.898 Chaz Miguel III, MD [address] [place] [address] [place] [address] 12/06/2023 Chaz Miguel MS (multiple sclerosis) G35 ; Positive PPD R76.11 ; Former smoker Z87.891 ; Underweight R63.6 ; Leg weakness, bilateral R29.898 and Endometrial cancer C54.1 Chza Miguel III, MD [address] [place] [address] [place] [address] 01/03/2024 Chaz Miguel MS (multiple sclerosis) G35 ; Positive PPD R76.11 ; Former smoker Z87.891 ; Underweight R63.6 and Leg weakness, bilateral R29.898 Chaz Miguel III, MD [address] [place] [address] [place] [address] 01/31/2024 Chaz Miguel MS (multiple sclerosis) G35 ; Positive PPD R76.11 ; Former smoker Z87.891 ; Leg weakness, bilateral R29.898 and Endometrial cancer C54.1 Chaz Miguel III, MD [address] [place] [address] [place] [address] 02/28/2024 Chaz Miguel MS (multiple sclerosis) G35 ; Former smoker Z87.891 ; Underweight R63.6 ; Leg weakness, bilateral R29.898 and Endometrial cancer C54.1 Chaz Miguel III, MD [address] [place] [address] [place] [address] 03/27/2024 Chaz Miguel MS (multiple sclerosis) G35 ; Leg weakness, bilateral R29.898 ; Underweight R63.6 ; Former smoker Z87.891 and Endometrial cancer C54.1 Chaz Miguel III, MD [address] [place] [address] [place] [address] 04/24/2024 Chaz Miguel MS (multiple sclerosis) G35 ; Positive PPD R76.11 ; Former smoker Z87.891 ; Underweight R63.6 ; Leg weakness, bilateral R29.898 and Endometrial cancer C54.1 Chaz Miguel III, MD [address] [place] [address] [place] [address] 05/22/2024 Chaz Espinosane MS (multiple sclerosis) G35 ; Positive PPD R76.11 ; Former smoker Z87.891 ; Underweight R63.6 and Endometrial cancer C54.1 Chaz Miguel III, MD [address] [place] [address] [place] [address] 06/19/2024 Chaz Miguel MS (multiple sclerosis) G35 ; Former smoker Z87.891 ; Leg weakness, bilateral R29.898 ; Endometrial cancer C54.1 and Underweight R63.6 Chaz Miguel III, MD [address] [place] [address] [place] [address] 07/22/2024 Chaz Miguel MS (multiple sclerosis) G35 ; Positive PPD R76.11 ; Former smoker Z87.891 ; Underweight R63.6 and Leg weakness, bilateral R29.898 Assessments Encounter Date Diagnosis (ICD Code) Assessment Notes Treatment Notes Treatment Clinical Notes 08/16/2023 MS (multiple sclerosis) (ICD-10 - G35) She received the Tysabri infusion today without difficulty and tolerated it well. 08/16/2023 Positive PPD (ICD-10 - R76.11) There is no sign of active tuberculosis this time. She has been treated with 12 months of isoniazid and should be free of disease. 09/13/2023 MS (multiple sclerosis) (ICD-10 - G35) She received the Tysabri infusion today without difficulty and tolerated it well. 09/13/2023 Positive PPD (ICD-10 - R76.11) There is no sign of active tuberculosis this time. She has been treated with 12 months of isoniazid and should be free of disease. 10/11/2023 MS (multiple sclerosis) (ICD-10 - G35) She received the Tysabri infusion today without difficulty and tolerated it well. 10/11/2023 Positive PPD (ICD-10 - R76.11) There is no sign of active tuberculosis this time. She has been treated with 12 months of isoniazid and should be free of disease. 11/08/2023 MS (multiple sclerosis) (ICD-10 - G35) She received the Tysabri infusion today without difficulty and tolerated it well. 11/08/2023 Positive PPD (ICD-10 - R76.11) There is no sign of active tuberculosis this time. She has been treated with 12 months of isoniazid and should be free of disease. 12/06/2023 MS (multiple sclerosis) (ICD-10 - G35) She received the Tysabri infusion today without difficulty and tolerated it well. 12/06/2023 Positive PPD (ICD-10 - R76.11) There is no sign of active tuberculosis this time. She has been treated with 12 months of isoniazid and should be free of disease. 01/03/2024 MS (multiple sclerosis) (ICD-10 - G35) She received the Tysabri infusion today without difficulty and tolerated it well. 01/03/2024 Positive PPD (ICD-10 - R76.11) There is no sign of active tuberculosis this time. She has been treated with 12 months of isoniazid and should be free of disease. 01/31/2024 MS (multiple sclerosis) (ICD-10 - G35) She received the Tysabri infusion today without difficulty and tolerated it well. 01/31/2024 Positive PPD (ICD-10 - R76.11) There is no sign of active tuberculosis this time. She has been treated with 12 months of isoniazid and should be free of disease. 02/28/2024 Former smoker (ICD-10 - Z87.891) She is highly motivated not to smoke and has a plan to prevent relapse in times of illness and distress. 02/28/2024 MS (multiple sclerosis) (ICD-10 - G35) She received the Tysabri infusion today without difficulty and tolerated it well. 03/27/2024 MS (multiple sclerosis) (ICD-10 - G35) She received the Tysabri infusion today without difficulty and tolerated it well. 03/27/2024 Leg weakness, bilateral (ICD-10 - R29.898) She uses a cane or a seated walker. There has been no change in the leg weakness and she remains fully ambulatory. 04/24/2024 MS (multiple sclerosis) (ICD-10 - G35) She received the Tysabri infusion today without difficulty and tolerated it well. 04/24/2024 Positive PPD (ICD-10 - R76.11) There is no sign of active tuberculosis this time. She has been treated with 12 months of isoniazid and should be free of disease. 05/22/2024 MS (multiple sclerosis) (ICD-10 - G35) She received the Tysabri infusion today without difficulty and tolerated it well. 05/22/2024 Positive PPD (ICD-10 - R76.11) There is no sign of active tuberculosis this time. She has been treated with 12 months of isoniazid and should be free of disease. 06/19/2024 Former smoker (ICD-10 - Z87.891) She is highly motivated not to smoke and has a plan to prevent relapse in times of illness and distress. 06/19/2024 MS (multiple sclerosis) (ICD-10 - G35) She received the Tysabri infusion today without difficulty and tolerated it well. 07/22/2024 MS (multiple sclerosis) (ICD-10 - G35) She received the Tysabri infusion today without difficulty and tolerated it well. 07/22/2024 Positive PPD (ICD-10 - R76.11) There is no sign of active tuberculosis this time. She has been treated with 12 months of isoniazid and should be free of disease. 08/16/2023 Former smoker (ICD-10 - Z87.891) She is highly motivated not to smoke and has a plan to prevent relapse in times of illness and distress. 09/13/2023 Former smoker (ICD-10 - Z87.891) She is highly motivated not to smoke and has a plan to prevent relapse in times of illness and distress. 10/11/2023 Former smoker (ICD-10 - Z87.891) She is highly motivated not to smoke and has a plan to prevent relapse in times of illness and distress. 11/08/2023 Former smoker (ICD-10 - Z87.891) She is highly motivated not to smoke and has a plan to prevent relapse in times of illness and distress. 12/06/2023 Former smoker (ICD-10 - Z87.891) She is highly motivated not to smoke and has a plan to prevent relapse in times of illness and distress. 01/03/2024 Former smoker (ICD-10 - Z87.891) She is highly motivated not to smoke and has a plan to prevent relapse in times of illness and distress. 01/31/2024 Former smoker (ICD-10 - Z87.891) She is highly motivated not to smoke and has a plan to prevent relapse in times of illness and distress. 02/28/2024 Underweight (ICD-10 - R63.6) Her weight has been stable. Her body mass index is 17.8. I encouraged her to increase her caloric intake. 03/27/2024 Underweight (ICD-10 - R63.6) Her weight has been stable. Her body mass index is 17.8. I encouraged her to increase her caloric intake. 04/24/2024 Former smoker (ICD-10 - Z87.891) She is highly motivated not to smoke and has a plan to prevent relapse in times of illness and distress. 05/22/2024 Former smoker (ICD-10 - Z87.891) She is highly motivated not to smoke and has a plan to prevent relapse in times of illness and distress. 06/19/2024 Leg weakness, bilateral (ICD-10 - R29.898) She uses a cane or a seated walker. There has been no change in the leg weakness and she remains fully ambulatory. 07/22/2024 Former smoker (ICD-10 - Z87.891) She is highly motivated not to smoke and has a plan to prevent relapse in times of illness and distress. 08/16/2023 Underweight (ICD-10 - R63.6) Her weight has been stable. Her body mass index is 17.8. I encouraged her to increase her caloric intake. 09/13/2023 Underweight (ICD-10 - R63.6) Her weight has been stable. Her body mass index is 17.8. I encouraged her to increase her caloric intake. 10/11/2023 Leg weakness, bilateral (ICD-10 - R29.898) She uses a cane or a seated walker. There has been no change in the leg weakness and she remains fully ambulatory. 11/08/2023 Underweight (ICD-10 - R63.6) Her weight has been stable. Her body mass index is 17.8. I encouraged her to increase her caloric intake. 12/06/2023 Underweight (ICD-10 - R63.6) Her weight has been stable. Her body mass index is 17.8. I encouraged her to increase her caloric intake. 01/03/2024 Underweight (ICD-10 - R63.6) Her weight has been stable. Her body mass index is 17.8. I encouraged her to increase her caloric intake. 01/31/2024 Leg weakness, bilateral (ICD-10 - R29.898) She uses a cane or a seated walker. There has been no change in the leg weakness and she remains fully ambulatory. 02/28/2024 Leg weakness, bilateral (ICD-10 - R29.898) She uses a cane or a seated walker. There has been no change in the leg weakness and she remains fully ambulatory. 03/27/2024 Former smoker (ICD-10 - Z87.891) She is highly motivated not to smoke and has a plan to prevent relapse in times of illness and distress. 04/24/2024 Underweight (ICD-10 - R63.6) Her weight has been stable. Her body mass index is 17.8. I encouraged her to increase her caloric intake. 05/22/2024 Underweight (ICD-10 - R63.6) Her weight has been stable. Her body mass index is 17.8. I encouraged her to increase her caloric intake. 06/19/2024 Endometrial cancer (ICD-10 - C54.1) She has completed her radiation. She has no pain at this point, but feels tired. She is cancer free at this time. 07/22/2024 Underweight (ICD-10 - R63.6) She has lost 3 pounds weighs 120 pounds.. Her body mass index is 17. I encouraged her to increase her caloric intake.He has been referred back to 08/16/2023 Endometrial cancer (ICD-10 - C54.1) She has completed her radiation. She has no pain at this point, but feels tired. She is cancer free at this time. 09/13/2023 Leg weakness, bilateral (ICD-10 - R29.898) She uses a cane or a seated walker. There has been no change in the leg weakness and she remains fully ambulatory. 10/11/2023 Endometrial cancer (ICD-10 - C54.1) She has completed her radiation. She has no pain at this point, but feels tired. She is cancer free at this time. 11/08/2023 Leg weakness, bilateral (ICD-10 - R29.898) She uses a cane or a seated walker. There has been no change in the leg weakness and she remains fully ambulatory. 12/06/2023 Leg weakness, bilateral (ICD-10 - R29.898) She uses a cane or a seated walker. There has been no change in the leg weakness and she remains fully ambulatory. 01/03/2024 Leg weakness, bilateral (ICD-10 - R29.898) She uses a cane or a seated walker. There has been no change in the leg weakness and she remains fully ambulatory. 01/31/2024 Endometrial cancer (ICD-10 - C54.1) She has completed her radiation. She has no pain at this point, but feels tired. She is cancer free at this time. 02/28/2024 Endometrial cancer (ICD-10 - C54.1) She has completed her radiation. She has no pain at this point, but feels tired. She is cancer free at this time. 03/27/2024 Endometrial cancer (ICD-10 - C54.1) She has completed her radiation. She has no pain at this point, but feels tired. She is cancer free at this time. 04/24/2024 Leg weakness, bilateral (ICD-10 - R29.898) She uses a cane or a seated walker. There has been no change in the leg weakness and she remains fully ambulatory. 05/22/2024 Endometrial cancer (ICD-10 - C54.1) She has completed her radiation. She has no pain at this point, but feels tired. She is cancer free at this time. 06/19/2024 Underweight (ICD-10 - R63.6) Her weight has been stable. Her body mass index is 17.8. I encouraged her to increase her caloric intake. 07/22/2024 Leg weakness, bilateral (ICD-10 - R29.898) She uses a cane or a seated walker. There has been no change in the leg weakness and she remains fully ambulatory. 09/13/2023 Endometrial cancer (ICD-10 - C54.1) She has completed her radiation. She has no pain at this point, but feels tired. She is cancer free at this time. 12/06/2023 Endometrial cancer (ICD-10 - C54.1) She has completed her radiation. She has no pain at this point, but feels tired. She is cancer free at this time. 04/24/2024 Endometrial cancer (ICD-10 - C54.1) She has completed her radiation. She has no pain at this point, but feels tired. She is cancer free at this time. Plan Of Treatment Next Appt Details Provider Name:Chaz Najerarne, 08/21/2024 01:00:00 PM, [address] [place] [address] IVAN OCONNOR, [place], [phone], Provider Name:Chaz Miguel, 09/18/2024 01:00:00 PM, [address] [place] [address] IVAN OCONNOR, [place], [phone], Provider Name:Chaz Miguel, 10/16/2024 01:00:00 PM, [address] [place] [address] IVAN OCONNOR, [place], [address], Insurance Providers Payer Name Payer Address Payer Phone Subscriber Number Group Number Insured Name Patient Relationship to Insured Coverage Start Date Coverage End Date MEDICARE NGS [address] [place] [address] [id number] AISSATOU WALLACE Self - patient is the insured MEDICAID [address] [place] [id number] [phone] [id number] AISSATOU WALLACE Self - patient is the insured Medical (General) History Medical History History ICD Code multiple sclerosis PPD positive age 16, 12 months isoniazid [id number] former smoker underweight Endometrial cancer October 2021 hysterectomy November 2021 endometrial carcin gem Surgical History Surgery Date(Month/Year) tonsillectomy age 10 [id number]
[2024-08-21 20:42] LABS: JCV Antibody POSITIVE; JCV Index Value 1.66 index
== END 2024-08-15 12:01 | disposition home or self-care (01) ==
LOC: HO.LAB 12:00
PROVIDERS: PCP Family Medicine; Visit Provider Psychiatry & Neurology Neurology
DX: G35 Multiple sclerosis (principal)
CPT/HCPCS: 36415; 86711

== ENCOUNTER 2024-12-13 11:00 | Outpatient (REF) | payer MEDICARE, MEDICAID, SELFPAY ==
--- NOTE | ~2024-12-13 | XR_ITS ---
CLINICAL HISTORY: PULMONARY TUBERCULOSIS Exam: PA and lateral views of the chest. Comparison: None. Findings: Lungs are well inflated. Mediastinal contours, cardiac silhouette, and pulmonary vasculature are within normal limits. Emphysematous changes throughout the lungs with diffuse interstitial prominence, most pronounced centrally. No focal areas of consolidation. No pleural effusion or pneumothorax. Bilateral nipple markers are present. Impression: 1. No acute infiltrate. 2. Nonspecific diffuse interstitial prominence. Interstitial lung disease would be favored. This document has been electronically signed by: Freedom Mcclure MD on 12/14/2024 10:11:06
--- OUTSIDE RECORDS SUMMARY | 2024-12-13 11:08 | XMS_ITS ---
Author Organization Chaz Miguel III, MD Address [address] [place] [address] Care Team Providers Care Engineering Illustrator Name Role Phone DILEEP Rushing Primary Care Provider Unavailab Chaz Britton Unavailable [phone] Tesha AWAN, [facility] Unavailable Unavailabl e Allergies Allergen (clinical drug ingredient) Drug/Non Drug Allergy documented on EMR Reaction Allergy Type Onset Date Status No Known Drug Allergy Unknown Drug Allergy Active REASON FOR VISIT Tysabri Infusion, Multiple sclerosis Medications Medication SIG (Take, Route, Fr equency, Duration) Notes Start Date End Date Status Ampyra 10 MG 1 tablet Orally Twice a day 7 Active Tysabri 300 MG/15ML Intravenous Active LORazepam 0.5 MG (Schedule IV Drug) T CANDICE 1 TABLET BY MOUTH TWICE DAILY IF NEEDED Oral Active Zoloft 50 MG 1 tablet Orally Once a day Active Social History Tobacco Use: Social History [...] te smoker Vital Signs Blood pressure systolic 116 mm Hg 12/12/19 25 Blood pressure diastolic 69 mm Hg 025 Heart Rate 74 /min 12/11/2024 Height 69 in in 12/11/2024 Weight 122 lbs 12/11/2024 BMI 18.01 kg/m2 12/11/2024 Encounters Encounter Location Date Provider Diagnosis Chaz Miguel III, MD [address] [place] [address] [address] [place] [id number] 12/11/2024 Chaz Miguel MS (multiple sclerosis) G35 ; Positive PPD R76.11 ; Former smoker Z87.891 ; Underweight R63.6 ; Leg weakness, bilateral R29.898 and Endometrial cancer C54.1 Assessments Encounter Date Diagnosis (ICD Code) Assessment Notes Treatment Notes Treatment Clinical Notes 12/11/2024 MS (multiple sclerosis) (ICD-10 - G35) She received the Tysabri infusion today without difficulty and tolerated it well. 12/11/2024 Positive PPD (ICD-10 - R76.11) There is no sign of active tuberculosis this time. She has been treated with 12 months of isoniazid and should be free of disease. 12/11/2024 Former smoker (ICD-10 - Z87.891) She is highly motivated not to smoke and has a plan to prevent relapse in times of illness and distress. 12/11/2024 Underweight (ICD-10 - R63.6) She has lost more weight Her body mass index is 17. I encouraged her to increase her caloric intake.I have referred her back to primary care for evaluation. 12/11/2024 Leg weakness, bilateral (ICD-10 - R29.898) She uses a cane or a seated walker. There has been no change in the leg weakness and she remains fully ambulatory. 12/11/2024 Endometrial cancer (ICD-10 - C54.1) She has completed her radiation. She has no pain at this point, but feels tired. She is cancer free at this time. Plan Of Treatment Medication Medication Name Sig Start Date Stop Date Notes Ampyra 10 MG 1 tablet Orally Twice a day 04/24/2017 Tysabri 300 MG/15ML Intravenous LORazepam 0.5 MG (Schedule IV Drug) T CANDICE 1 TABLET BY MOUTH TWICE DAILY IF NEEDED Oral Zoloft 50 MG 1 tablet Orally Once a day Next Appt Details Provider Name:Chaz Miguel, 01/08/2025 01:00:00 PM, [address] [place] [address] [address], [place], [id number], Provider Name:Chaz Espinosane, 02/05/2025 01:00:00 PM, [address], [place], [address], Provider Name:Chaz Miguel, 03/05/2025 01:00:00 PM, [address], [place], [address], Provider Name:Chaz Espinosane, 04/02/2025 01:00:00 PM, [address] [place] [address] [address], [place], [address], Provider Name:Chaz Espinosane, 04/30/2025 01:00:00 PM, [address] [place] [address] [address], [place], [phone], Progress Notes * REJI WALLACEOB:1965 (59 yo F)Acc No.[id number]:12/11/2024 Patient:?AISSATOU WALLACE Provider:?Chaz Miguel MD :1965???Age:59 Y???Sex:Female D ate:12/11/2024 Address:[address] [facility], [id number] Pcp:DILEEP Rushing Subjective: * Chief Complaints: * ???Tysabri InfusionMultiple sclerosis * HPI: ???COVID-19 Screening:? She is here for her infusion of Tysabri, which is a monoclonal antibody to control her multiple sclerosis.? Since her last visit she has been healthy and well.? She could give no contraindication to treatment today.? She was treated without incident. ?Questions?Have you had any new onset fever, chills, cough, congestion, sore throat, shortness of breath, muscle aches??No * ROS:?General/Constitutional:?pain?only normal aches and pains.?Chills?denies.?Fatigue?admits.?Fever?denies.?ENT:?Decreased hearing?denies.?Respiratory:?Cough?denies.?Cardiovascular:?Chest pain with exertion?denies.?Dyspnea on exertion?denies.?Shortness of breath?denies.?Gastrointestinal:?Constipation?occasional.?Decreased appetite?denies.?Diarrhea?denies.?Heartburn?denies.?Nausea?denies.?Rectal bleeding?denies.?Vomiting?denies.?Hematology:?bruising?denies.?petechiae?denies.?Swollen glands?none have been noted.?Genitourinary:?Frequent urination?at night.?Musculoskeletal:?Muscle aches?denies.?Painful joints?denies.?Sciatica?denies.?Weakness?Both legs.?Skin:?Itching?denies.?Rash?denies.?Skin lesion(s)?denies.?Neurologic:?Difficulty speaking?denies.?Dizziness?denies.?Headache?denies.?Low back pain?denies.?Psychiatric:?Depressed mood?which is mild.? * Medical History:? * Surgical History:?[id number] to nsillectomy age 10 * Hospitalization/Major Diagno [...] no longer employed. She was born in [facility]. 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 * Examination: ???General Examination: ?GENERAL APPEARANCE:?pleasant, well [...] no clubbing, cyanosis or edema, Muscle wasting with spasticity both lower extremities, neuro transmitted her on left ankle.?PERIPHERAL PULSES:?normal.?NEUROLOGIC:?alert and oriented, cranial nerves 2-12 grossly intact, deep tendon reflexes 2+ symmetrical, motor strength normal upper and lower extremities, sensory exam intact, Weakness and spasticity of both lower extremities.?PSYCH:?alert, oriented, cognitive function intact.? Assessment: * Assessment: 1.?MS (multiple sclerosis) - [...] and distress.???4.?Underweight - R63.6???Notes :She has lost more weight Her body mass index is 17. I encouraged her to increase her caloric intake.I have referred her back to primary care for evaluation.???5.?Leg weakness, bilateral - R29.898???Notes :She uses a cane or a seated walker. There has been no change in the leg weakness and she remains fully ambulatory.???6.?Endometrial cancer - C54.1???Notes :She has completed her radiation. She has no pain at this point, but feels tired. She is cancer free at this time.??? Plan: * Treatment: * Procedure Codes:? * Preventive Medicine:? ??Counseling:?Care goal follow-up plan:?Counseling for abnormal BMI given?Yes ?Below Normal BMI Follow-up?Dietary education for weight gain, Dietary management education, guidance, and counseling, Feeding regime, Lifestyle education regarding diet, Nutrition / feeding management, Prescribed diet education, Special diet education, Intervention, Order not done: Medical or Other reason not done * Images: * Sign off status: Completed true * Provider:?Chaz Miguel MD Date:?11/22 Generated for Chaneli jai/Jay/eTransmitting on:?12/13/2024 11:08 AM EDT History and Physical Notes * HPI (History [...] and lower extremities, sensory exam intact, Weakness and spasticity of both lower extremities SKIN: no suspicious lesion s, anicteric PERIPHERAL PULSES: normal BREASTS: Not examined MUSCULOSKELETAL: extremities unremark able, no clubbing, cyanosis or edema, Muscle wasting with spasticity both lower extremities, neuro transmitted her on left ankle LYMPH NODES: no enlarged lymph no estrella,spleen normal RECTAL EXAM: not examined PSYCH: alert, oriented, cog nitive function intact ORAL CAVITY: normal, unremarkable
== END 2024-12-13 11:01 | disposition home or self-care (01) ==
LOC: HO.XRAY 11:00
PROVIDERS: PCP Family Medicine; Visit Provider Nurse Practitioner Family
DX: Z11.1 Encounter for screening for respiratory tuberculosis (principal)
CPT/HCPCS: 71046

== ENCOUNTER → 2024-12-13 11:20 | Outpatient (BNV) | payer MEDICARE, MEDICAID, SELFPAY | PROVIDERS: PCP Family Medicine; Visit Provider Radiology Diagnostic Radiology | DX: J84.9 Interstitial pulmonary disease, unspecified (principal) | CPT/HCPCS: 71046 ==